=== PATIENT | male | born 1990 | race African-American/Black ===

== ENCOUNTER 2019-11-29 20:39 | Emergency (ER) | payer MEDICAID ==
[~2019-11-29] VITALS: Ht 172.7 cm; Wt 81.6 kg
--- NOTE | 2019-11-29 20:53 | NUR ---
PT BIBPD DELUSION OF PERSECUTION,PARANOIA. DENIES SI/HI.DENIES HALLUCINATIONS HAVENT TAKEN PSYCH MEDS X 2 DAYS. CANNABIS USE 40 MIN AGO PER PT. PT ALERT, RR EVEN AND UNLABORED ON RA W/ NAD NOTED. PT AMBULATORY, CONNECTED TO THE AUTOMATIC STE[employer] T[employer] ADJUSTER AND POX. AWAITING FOR MD GASTELUM
--- NOTE | 2019-11-29 21:06 | NUR ---
URINE COLLECTED AND SENT TO LAB
[2019-11-29] MEDS ORDERED: OLANZAPINE 5 MG TABLET ONE (21:09)
[2019-11-29 21:13] LABS: APPEARANCE,URINE Clear (CLEAR); BILIRUBIN,URINE MODERATE (NEGATIVE); BLOOD, URINE Negative Ery/uL (NEGATIVE); COLOR,URINE Orange (YELLOW); KETONES,URINE 15 (NEGATIVE); LEUKOCYTE ESTERASE ,URINE Negative (NEGATIVE); NITRITE, URINE Negative (NEGATIVE); PROTEIN,URINE 100 mg/dl (NEGATIVE); UGLUCOSE Negative (NEGATIVE)
[2019-11-29 21:22] LABS: BASOPHILS % (AUTO) 0.6 % (0.0-2.0); HEMATOCRIT 44 % (39-51); HEMOGLOBIN 14.2 g/dL (13.5-17.5); LYMPHOCYTES # (AUTO) 2.2 /CMM (0.8-4.8); LYMPHOCYTES % (AUTO) 25.6 % (20.0-44.0); MEAN CORPUSCULAR HGB CONC 33 g/dl (31.0-36.0); MEAN CORPUSCULAR VOLUME 92 fL (80-96); MONOCYTES # (AUTO) 0.9 /CMM (0.1-1.30); MONOCYTES % (AUTO) 10.2 % (2.0-12.0); NEUTROPHILS # (AUTO) 5.3 /CMM (1.8-8.9); NEUTROPHILS % (AUTO) 61.6 % (43.0-81.0); PLATELET COUNT (AUTO) 210 /CMM (150-450); RED BLOOD CELL COUNT(AUTO) 4.73 MIL/uL (4.5-6.0); WHITE BLOOD COUNT (AUTO) 8.6 K/uL (4.3-11.0)
[2019-11-29] MEDS ORDERED: OLANZAPINE 5 MG TABLET PO ONE (21:30)
[2019-11-29 21:31] LABS: CALCIUM, SERUM 8.8 mg/dL (8.5-10.1); CARBON DIOXIDE 27 mmol/L (21-32); CHLORIDE 103 mmol/L (98-107); GLUCOSE 91 mg/dL (74-106); POTASSIUM 4.2 mmol/L (3.5-5.1); SODIUM SERUM 141 mmol/L (136-145); UREA NITROGEN, BLOOD 17 mg/dL (7-18)
[2019-11-29 21:36] LABS: ALANINE AMINOTRANSFERASE 42 U/L (12-78); ALCOHOL, BLOOD < 3 mg/dL (0-0); ALKALINE PHOSPHATASE 84 U/L (46-116); ASPARTATE AMINOTRANSFERASE 51 U/L (15-37); BILIRUBIN,DIRECT 0.2 mg/dL (0.0-0.2); BILIRUBIN,TOTAL 0.6 mg/dL (0.2-1.0); SALICYLATE 2.8 mg/dL (2.8-20.0); TOTAL PROTEIN, SERUM 7.6 g/dL (6.4-8.2)
[2019-11-29 21:38] LABS: ACETAMINOPHEN 0 ug/ml (10-30)
[2019-11-29 21:47] LABS: RBC,URINE 0-2 /HPF (0-2); WBC,URINE 0-2 /HPF (0-3)
[2019-11-29 21:48] LABS: BACTERIA,URINE Few /HPF (None Seen); COARSE GRANULAR CASTS,URINE FEW /LPF (None Seen); SQUAMOUS EPITHELIAL CELL,UR Few /HPF (None Seen)
--- NOTE | 2019-11-30 00:16 | NUR ---
PT RESTING COMFROTABLY. NO ACUTE DISTRESS NOTED AT THIS TIME. VSS
--- NOTE | 2019-11-30 00:25 | NUR ---
CLINICALS AND FACESHEET FAXED TO [facility] INTAKE.
--- NOTE | 2019-11-30 03:12 | NUR ---
CLINICALS AND FACESHEET REFAXED TO [facility] INTAKE.
--- NOTE | 2019-11-30 03:57 | NUR ---
PT ACCEPTED AT [facility] PT WILL GO TO UNIT 1 PHONE # FOR REPORT
--- NOTE | 2019-11-30 04:10 | NUR ---
TRANSPORT CALLED ([facility]) ETA [phone] OR [facility]
--- NOTE | 2019-11-30 05:13 | NUR ---
PT RESTING COMFROTABLY. NO ACUTE DISTRESS NOTED AT THIS TIME. VSS
--- NOTE | 2019-11-30 05:22 | NUR ---
REPORT GIVEN TO ANNE FERRELL
[2019-11-30 06:36] VITALS: BP 119/79
--- NOTE | 2019-11-30 06:36 | NUR ---
PT RESTING COMFROTABLY. NO ACUTE DISTRESS NOTED AT THIS TIME. VSS
--- NOTE | 2019-11-30 07:22 | NUR ---
PT TRANSFERRED TO [facility] IN STABLE CONDITION. VSS. NO ACUTE DISTRESS NOTED. REPORT GIVEN TO EMS
== END 2019-11-30 07:24 | disposition short-term general hospital (02) ==
LOC: ER 20:39
DX: F20.9 Schizophrenia, unspecified (principal); I10 Essential (primary) hypertension
CPT/HCPCS: 36415; 80048; 80076; 80305; 80307; 80329; 81001; 85025; 99285; G0480; 81000-TC